=== PATIENT | male | born 1990 | race Caucasian/White ===

== ENCOUNTER 2021-05-28 10:07 | Emergency (ER) | payer BC, SELFPAY ==
--- NOTE | ~2021-05-28 | CT_ITS ---
EXAMINATION: CT abdomen pelvis wo con EXAM DATE: 05/28/2021 11:50 INDICATION: RLQ pain. TECHNIQUE: Spiral CT of the abdomen and pelvis was performed without contrast. Axial, coronal and sag ittal images were reviewed. The dose-length product (DLP) for this examination was 691.82 mGy-cm. T he exposure was tailored according to patient size (auto mA exposure control), and iterative reconstr uction (ASIR) was used as additional dose reduction technique. Comparison is made to prior examinatio n from 06/01/2018. FINDINGS: There is no nephrolithiasis or hydronephrosis. The prostate is unremarkable. The bladder is unremarkable. The liver, spleen, adrenal glands and pancreas are unremarkable. Gallbladder is u nremarkable. No biliary obstruction. There is no retroperitoneal or pelvic lymphadenopathy. The appendix is normal. The stomach and small bowel are unremarkable. There is expected amount of c olonic stool. No free intraperitoneal gas. The heart is normal in size. There are no pericardial or pleural effusions. Left lower lobe granulomata. The bones are unremarkable. IMPRESSION: Normal appendix. No acute findings. Reviewed, dictated and finalized at location B.
[2021-05-28 10:12] VITALS: BP 150/97; PULSE 85; RESP 16; TEMP 36.3; O2SAT 100
--- NOTE | 2021-05-28 10:24 | ED.GENADULT ---
HPI - General Adult General Chief complaint: Abdominal Pain Stated complaint: ABD pain Time Seen by Provider: 05/28/21 10:12 Source: patient Mode of arrival: ambulatory Limitations: no limitations History of Present Illness HPI narrative: Here for evaluation of right lower quadrant pain. Patient states that started about 2 days ago and is nagging in quality. States he is urinating and stooling as usual. His appetite is not changed. He denies any injury to the area. No history of kidney stones in him, may be remote in his grandfather. Onset (ago): day(s) Radiation: back (from front to back) Quality: aching Pain Consistency: constant Relieving factors: none Exacerbating factors: none Associated symptoms: denies other symptoms Related Data Home Medications Medication Instructions Recorded Confirmed No Home Medications 04/18/21 04/18/21 Allergies Allergy/AdvReac Type Severity Reaction Status Date / Time Sulfa (Sulfonamide Allergy Unknown unkown Verified 05/28/21 10:37 Antibiotics) Review of Systems Review of Systems: All systems reviewed & are unremarkable except as noted in HPI and below [facility] Family History Family History Grandparent Acute myocardial infarction Social History Social History (Updated 05/28/21 @ 11:08 by Jessica Tang PA-C) Smoking status: Never smoker Alcohol intake: current Alcohol use details: rarely Substance use type: does not use Living arrangements: with family Occupation/Education: occupation Additional occupation/education comments: desk job Exam Const: General: no acute distress and alert Orientation/consciousness: patient oriented x3 HENMT: Head: normal to inspection Eyes: Pupils: Equal, round and reactive pupils present Resp: Effort & Inspection: normal respiratory effort Auscultation: clear to auscultation bilaterally Cardio: Rate: regular rate Rhythm: regular rhythm GI: GI Palp: Yes Soft to palpation and Yes Tenderness to palpation present (GI) (RLQ, mild) Auscultation: normal bowel sounds Back/Spine/Pelvis: Back: no CVA tenderness Skin: General skin exam: normal color Extrem: General: normal to inspection Psych: Mental Status: mental status grossly normal Course Course Emergency Course: Test were unremarkable here. Patient states that he currently does not have pain. Recommend that he try a bland diet for a while at home and see if that makes it better, follow-up with his primary care physician. Vital Signs Vital signs: Vital Signs Temperature 36.3 C L 05/28/21 10:12 Pulse Rate 85 05/28/21 10:12 Respiratory Rate 16 05/28/21 10:12 Blood Pressure 150/97 H 05/28/21 10:12 Pulse Oximetry 100 05/28/21 10:12 Temperature 36.3 C L 05/28/21 10:12 Pulse Rate 85 05/28/21 10:12 Respiratory Rate 16 05/28/21 10:12 Blood Pressure 150/97 H 05/28/21 10:12 Pulse Oximetry 100 05/28/21 10:12 Medical Decision Making Vital Signs Vital Signs: Vital Signs Temperature 36.3 C L 05/28/21 10:12 Pulse Rate 85 05/28/21 10:12 Respiratory Rate 16 05/28/21 10:12 Blood Pressure 150/97 H 05/28/21 10:12 Pulse Oximetry 100 05/28/21 10:12 Temperature 36.3 C L 05/28/21 10:12 Pulse Rate 85 05/28/21 10:12 Respiratory Rate 16 05/28/21 10:12 Blood Pressure 150/97 H 05/28/21 10:12 Pulse Oximetry 100 05/28/21 10:12 Discharge Plan Discharge Clinical Impression: Abdominal pain in male Patient Disposition: Home, Self-Care Condition: Improved Instructions: Antibiotic Form, Abdominal Pain (ED) Additional Instructions: May try eating a bland diet for the next several days see if that makes your pain resolved. Follow-up with your primary care physician at the first available date. Return to the emergency room should you have blood in your stool or urine, or unable to urinate. Prescriptions: No Action No Home Medic
[2021-05-28 10:57] LABS: Basophils Absolute Auto 0.1 K/mm3 (0.0-0.1); Basophils Percent Auto 1.5 % (0.2-1.2); Eosinophils Absolute Auto 0.2 K/mm3 (0-0.3); Eosinophils Percent Auto 4.4 % (0-4.4); Hematocrit 42.6 % (42.0-52.0); Hemoglobin 13.9 g/dL (14.0-18.0); Immature Granulocyte Absolute 0.01 K/mm3 (0.00-0.031); Immature Granulocyte Percent A 0.2 % (0-0.5); Lymphocytes Absolute Auto 1.64 K/mm3 (0.9-3.2); Lymphocytes Percent Auto 34.5 % (18.3-44.2); Mean Corpuscular HGB Conc 32.6 g/dl (32-36); Mean Corpuscular Hemoglobin 29.6 pg (26-34); Mean Corpuscular Volume 90.8 fl (80-100); Mean Platelet Volume 10.2 fl (7.4-10.4); Monocytes Absolute Auto 0.4 K/mm3 (0.1-0.6); Monocytes Percent Auto 8.4 % (2.6-8.5); Neutrophils Absolute Auto 2.4 K/mm3 (1.3-6.7); Platelet Count Result 227 k/mm3 (150-375); Red Blood Count 4.69 M/mm3 (4.6-6.20); Red Cell Distribution Width 12.4 % (11.5-14.5); White Blood Count 4.8 K/mm3 (4.5-10.0)
[2021-05-28 11:23] LABS: Add Urine Microscopic? NO; Appearance Urine Clear (Clear); Bilirubin Urine Negative (Negative); Blood Urine Negative (Negative); Color Urine Yellow (Yellow); Glucose Urine UA Negative (Negative); Ketones Urine Negative (Negative); Leukocyte Esterase Ur Negative LEU/UL (Negative); Nitrate Urine Negative (Negative); Protein Urine Negative (Negative); Specific Grav Ur 1.012 (1.001-1.035); Urobilinogen Urine Negative mg/dL (<2.0)
[2021-05-28 11:38] LABS: Alanine Aminotransferase 25 U/L (4-50); Albumin Level 4.4 g/dL (3.5-5.1); Alkaline Phosphatase 61 U/L (38-126); Anion Gap 7 mmol/L (8-16); Aspartate Amino Transferase 32 U/L (17-59); Blood Urea Nitrogen 11 mg/dL (9-20); Calcium 9.4 mg/dL (8.4-10.2); Carbon Dioxide 29 mmol/L (22-30); Chloride 103 mmol/L (98-107); Estimated CRCL calculation 117 ml/min; Estimated Glomerular Filt Rate > 60; Glucose 99 mg/dL (65-110); Lipase 124 U/L (23-300); Potassium 4.2 mmol/L (3.4-5.0); Sodium 139 mmol/L (137-145)
[2021-05-28 12:30] VITALS: BP 121/88; PULSE 69; RESP 14; O2SAT 99
[2021-05-28 13:20] VITALS: BP 134/84; PULSE 66; RESP 17; O2SAT 100
== END 2021-05-28 13:21 | disposition home or self-care (01) ==
PROVIDERS: Physician Assistant; Emergency Provider Emergency Medicine
DX: R10.31 Right lower quadrant pain (principal)
CPT/HCPCS: 36415; 74176; 80053; 81003; 83690; 85025; 99284

== ENCOUNTER 2022-07-02 12:38 | Emergency (ER) | payer BC, SELFPAY ==
[2022-07-02 12:51] VITALS: BP 126/87; PULSE 97; RESP 16; TEMP 36.5; O2SAT 98
--- NOTE | 2022-07-02 13:16 | ED.URI ---
HPI - URI/Sore Throat General Chief Complaint: Upper Respiratory Infection Stated Complaint: sinus congestion Time Seen by Provider: 07/02/22 13:16 Source: patient, RN notes reviewed and old records reviewed Mode of arrival: ambulatory Limitations: no limitations History of Present Illness HPI Narrative: 31-year-old male presents to the [facility] with complaints of sinus congestion and pressure. Reports testing positive for influenza a on the 20 of June. Patient states he was never tested for flu, states that son was positive for flu and he just assumed he had the flu as well. Related Data Allergies Allergy/AdvReac Type Severity Reaction Status Date / Time Sulfa (Sulfonamide Allergy Unknown unkown Verified 07/02/22 12:56 Antibiotics) Review of Systems Review of Systems: All systems reviewed & are unremarkable except as noted in HPI and below Constitutional: Constitutional: Reports no additional constitutional complaints Eyes: Eyes: Reports no additional eye complaints ENT: Reports as per HPI Cardiovascular: Cardiovascular: Reports no additional cardiovascular complaints, Denies chest pain and Denies dyspnea Respiratory: Respiratory: Reports no additional respiratory complaints, Denies chest congestion, Denies cough and Denies dyspnea Gastrointestinal: Gastrointestinal: Reports no additional gastrointestinal complaints Musculoskeletal: Musculoskeletal: Reports no additional musculoskeletal complaints Integumentary/Breasts: Skin/Breast: Reports system reviewed and no additional complaints, except as docu Neurologic: Reports system reviewed and no additional complaints, except as documented Psychiatric: Psychiatric: Reports no additional psychiatric complaints Allergic/Immunologic: Allergic/Immunologic: Reports no additional allergic/immunologic complaints [facility] Past Medical History Medical History No active medical problems Family History Family History Grandparent Acute myocardial infarction Social History Social History Smoking status: Never smoker Alcohol intake: current Alcohol use details: rarely Substance use type: does not use Additional occupation/education comments: desk job Comments At the time of my signature, I reviewed and agree with the nursing past medical, surgical, social, and family history. There is no relevant family history pertinent to the patient complaint. Exam Const: General: cooperative, healthy appearing, comfortable, no acute distress, well developed, alert and average body habitus Nutritional Appearance: average body habitus Orientation/consciousness: patient oriented x3 Limitations: no limitations HENMT: Head: normal to inspection Ears: hearing grossly normal bilaterally, external ears normal and TM abnormal bulging on the left, perforated with bloody discharge on the left and scarred on the left Face/Nose/Sinus: Normal external nose present, Normal nares present, Normal nasal mucous membranes and turbinates present and normal facial exam Face and sinus: normal facial exam Mouth: Yes Normal oral and palatal mucosa present, Yes lip normal and Yes moist mucous membranes Throat: posterior oropharynx normal and uvula midline Eyes: General: appearance normal, both eyes and all related structures Alignment and Position: alignment normal Periorbital: periorbital findings normal Conjunctivae: conjunctivae normal Pupils: Equal, round and reactive pupils present EOM: EOMs intact bilaterally Neck: Neck: normal visual inspection, full ROM, no lymphadenopathy and no meningeal signs Chest: Chest palpation & inspection: normal inspection of the chest Resp: Effort & Inspection: normal respiratory effort and able to speak in complete sentences Auscultation: clear to auscultation bilaterally, no crackl
== END 2022-07-02 13:47 | disposition home or self-care (01) ==
PROVIDERS: Emergency Provider Nurse Practitioner
DX: H66.92 Otitis media, unspecified, left ear (principal); H72.92 Unspecified perforation of tympanic membrane, left ear; J01.40 Acute pansinusitis, unspecified
CPT/HCPCS: 99213; G0463

== ENCOUNTER 2022-10-07 10:58 | Outpatient (CLI) | payer BC, SELFPAY ==
[2022-10-07 12:42] LABS: Kit Draw Collected
== END 2022-10-07 10:59 | disposition home or self-care (01) ==
LOC: ANHGOSHLAB 10:59
PROVIDERS: PCP Family Medicine; Visit Provider Nurse Practitioner
DX: R10.9 Unspecified abdominal pain (principal)
CPT/HCPCS: 36415

== ENCOUNTER 2023-01-26 11:52 | Emergency (ER) | payer BC, SELFPAY ==
--- NOTE | 2023-01-26 11:54 | ED.EYEPROB ---
HPI - Eye Problem General Chief complaint: Eye Problems Stated complaint: EYE INFECTION Time Seen by Provider: 01/26/23 11:53 Source: patient Mode of arrival: ambulatory Limitations: no limitations History of Present Illness HPI Narrative: Cholo is a 32-year-old male patient presenting to the clinic today with complaints of possible right eye infection x1 day. He reports he does wear contacts. His currently has conjunctivitis and he is concerned that he may have pinkeye. Denies any known injury to the eye but does states the eye is painful and feels like there are scratches in his right eye. States he is having some clear watery discharge coming from the eye and some yellow crusting at times Related Data Allergies Allergy/AdvReac Type Severity Reaction Status Date / Time Sulfa (Sulfonamide Allergy Unknown unkown Verified 01/26/23 11:55 Antibiotics) Review of Systems Review of Systems: Pertinent positives per HPI. Patient denies any fever, chills, rash, headache, visual changes, dizziness, cough, runny nose, sore throat, shortness of breath, chest pain, palpitations, nausea, vomiting, diarrhea, constipation, abdominal pain, or any urinary issues. [facility] Past Medical History Medical History No active medical problems Family History Family History Grandparent Acute myocardial infarction Mother Lupus Social History Social History Social History: Caffeine- 2 cups coffee daily Smoking status: Never smoker Alcohol intake: current Alcohol use details: rarely Substance use type: does not use Lack of Transportation: No Lack of Food: Never True Current Housing: I Have Housing Concerned About Future Housing: No Difficulty Paying Gas/Electric Bills: No Difficulty Paying for Meds: No Currently Unemployed: No Education: Bachelor's Degree Difficulty w/ Childcare or Family Care: No Living arrangements: with family Occupation/Education: occupation Additional occupation/education comments: desk job Comments At the time of my signature, I reviewed and agree with the nursing past medical, surgical, social, and family history. There is no relevant family history pertinent to the patient complaint. Exam Narrative: General: Well-developed, well nourished, in no apparent distress Head: Normocephalic, atraumatic Eyes: Pupils equally round and reactive to light bilaterally, EOM intact, left sclera and conjunctive clear, right sclera and conjunctiva mildly injected, no discharge, lids normal Ears: TMs intact and clear, ear canals clear, no drainage, grossly hearing normal. Nose: Nares patent, no discharge, no inflammation, no sinus tenderness. Mouth: Oropharynx without lesions or masses, good dentition, MMM. Neck: Supple, trachea midline, no enlargement of anterior or posterior cervical nodes, no thyroid masses or goiter palpable. Cardio: Regular rate and rhythm, s1 and s2 normal, no murmur appreciated. Resp: Clear to auscultation bilaterally anteriorly and posteriorly, no rhonchi, rales, wheezing or rubs Course Course Emergency Course: Portions of this record may have been created with voice recognition software. Level of Care: Express Care Visit Vital Signs Vital signs: Vital signs reviewed Procedures Other Procedure Procedure 1: Other Procedure: 1 drop of tetracaine topical anesthetic was instilled with good anesthesia into the right eye. Fluorescein stain of the right eye was performed without uptake of dye. No epithelial defect was noted. No FB, ulcer or dendritic lesions. Upper lid was everted and no FB or lesions were noted. N0 Jesús sign. Normal saline irrigation eye solution was performed and the patient tolerated the procedure well, no adverse reaction or complications.
[2023-01-26 12:00] VITALS: BP 128/68; PULSE 98; RESP 16; TEMP 36.6; O2SAT 99
== END 2023-01-26 12:20 | disposition home or self-care (01) ==
PROVIDERS: Emergency Provider Nurse Practitioner Family; PCP Nurse Practitioner
DX: H57.11 Ocular pain, right eye (principal)
CPT/HCPCS: 99213; A9270; G0463

== ENCOUNTER 2023-09-23 12:03 | Emergency (ER) | payer BC, SELFPAY ==
[2023-09-23 12:27] VITALS: BP 147/85; PULSE 105; RESP 16; TEMP 36.4; O2SAT 99
--- NOTE | 2023-09-23 12:33 | ED.URI ---
HPI - URI/Sore Throat General Chief Complaint: Upper Respiratory Infection Stated Complaint: Fatigue/Bodyaches Time Seen by Provider: 09/23/23 12:33 Source: patient Mode of arrival: ambulatory Limitations: no limitations History of Present Illness HPI Narrative: 33 y/o male presented for c/o generalized fatigue and body aches x2 days. Says he had some nasal congestion which has resolved. Denies any other symptoms. Not taking anything for symptoms. Related Data Allergies Allergy/AdvReac Type Severity Reaction Status Date / Time Sulfa (Sulfonamide Allergy Unknown unkown Verified 09/23/23 12:17 Antibiotics) Review of Systems Review of Systems: CONSTITUTIONAL: reports body aches, malaise denies fever, chills, or sweats. EYES: Denies visual changes, redness, or discharge. ENT: Denies rhinorrhea, congestion, sore throat, or otalgia. CARDIOVASCULAR: Denies chest pain, palpitations, or edema. RESPIRATORY: Denies cough or dyspnea. GASTROINTESTINAL: Denies abdominal pain, nausea, vomiting, or diarrhea. GENITOURINARY: Denies dysuria or hematuria. SKIN: Denies rash, itching, or wounds. MUSCULOSKELETAL: Denies back pain, joint pain, or myalgia. NEUROLOGIC: Denies headache, numbness, tingling, or weakness. All systems reviewed & are unremarkable except as noted in HPI and below PMFSH Past Medical History Medical History No active medical problems Family History Family History Grandparent Acute myocardial infarction Mother Lupus Social History Social History Social History: Caffeine- 2 cups coffee daily Smoking status: Never smoker Alcohol intake: current Alcohol use details: rarely Substance use type: does not use Lack of Transportation: No Lack of Food: Never True Current Housing: I Have Housing Concerned About Future Housing: No Difficulty Paying Gas/Electric Bills: No Difficulty Paying for Meds: No Currently Unemployed: No Education: Bachelor's Degree Difficulty w/ Childcare or Family Care: No Living arrangements: with family Occupation/Education: occupation Additional occupation/education comments: desk job Comments At time of signature, I have reviewed and agree with nursing past medical, surgical, social and family history unless otherwise noted. Please see nursing chart for further information. There is no relevant family history pertinent to the presenting complaint Exam Narrative: GENERAL: Well-appearing EYES: EOMI. No redness or drainage. Conjunctivae normal. ENT: Mucous membranes pink and moist. No rhinorrhea. TMs pearly anderson with dull light reflex and clear effusion bilaterally. Throat normal. Uvula midline. NECK: Normal AROM. Supple. No lymphadenopathy. CHEST: No respiratory distress. Clear to auscultation. HEART: Regular rate and rhythm. No murmur appreciated. Normal peripheral pulses. SKIN: Warm, dry, no rash. Capillary refill normal. Normal skin turgor. NEURO: No focal deficits. Alert and oriented x3. Gait steady. PSYCH: Normal affect. Course Course Emergency Course: Patient is aware of diagnosis, understands and agrees to treatment plan. Anticipatory guidance given. Patient agrees to follow-up as directed and is aware of reasons to seek care at the emergency department. Portions of this record may have been created with voice recognition software Level of Care: Express Care Visit Vital Signs Vital signs: Vital Signs Temperature 97.6 F 09/23/23 12:27 Pulse Rate 105 H 09/23/23 12:27 Respiratory Rate 16 09/23/23 12:27 Blood Pressure 147/85 H 09/23/23 12:27 Pulse Oximetry 99 09/23/23 12:27 Temperature 97.6 F 09/23/23 12:27 Pulse Rate 105 H 09/23/23 12:27 Respiratory Rate 16 09/23/23 12:27 Blood Pressure 147/85 H 09/23/23 12:27 Pulse Oximetr
== END 2023-09-23 12:45 | disposition home or self-care (01) ==
PROVIDERS: Emergency Provider Nurse Practitioner Family
DX: B34.9 Viral infection, unspecified (principal); Z20.822 Contact with and (suspected) exposure to COVID-19
CPT/HCPCS: 87426; 87804; 99213; G0463

== ENCOUNTER 2023-09-28 08:23 | Emergency (ER) | payer BC, SELFPAY ==
--- NOTE | ~2023-09-28 | XR_ITS ---
EXAMINATION: XR chest 2V DATE: 09/28/2023 08:56 INDICATION: Right chest pain. TECHNIQUE: Frontal and lateral views of the chest were obtained. COMPARISON: CT abdomen and pelvis 05/28/2021 FINDINGS: A calcified left lung nodule is consistent with old granulomatous disease. There is no pneu monia, pleural effusion, or pneumothorax. The heart size is normal. IMPRESSION: 1. No acute cardiopulmonary disease. Reviewed, dictated and finalized at location A. MECHANICAL TECHNICIAN
--- NOTE | 2023-09-28 08:24 | ECG_ITS ---
Measurements Intervals [place] Rate: 83 P: 52 PA: 165 QRS: 27 QRSD: 89 T: 14 QT: 364 QTc: 430 Interpretive Statements SINUS RHYTHM NO PREVIOUS ECG AVAILABLE FOR COMPARISON Electronically Signed On 09-28-2023 12:43:11 COMPENSATION ANALYST by Hanh Burgos M.D.
[2023-09-28 08:29] VITALS: PULSE 86; RESP 16; TEMP 36.7; O2SAT 100
[2023-09-28 08:50] LABS: Basophils Absolute Auto 0.1 K/mm3 (0.0-0.1); Basophils Percent Auto 1.3 % (0.2-1.2); Eosinophils Absolute Auto 0.4 K/mm3 (0-0.3); Eosinophils Percent Auto 5.8 % (0-4.4); Hematocrit 48.7 % (42.0-52.0); Hemoglobin 15.3 g/dL (14.0-18.0); Immature Granulocyte Absolute 0.01 K/mm3 (0.00-0.031); Immature Granulocyte Percent A 0.2 % (0-0.5); Lymphocytes Absolute Auto 1.91 K/mm3 (0.9-3.2); Lymphocytes Percent Auto 30.5 % (18.3-44.2); Mean Corpuscular HGB Conc 31.4 g/dl (32-36); Mean Corpuscular Hemoglobin 28.6 pg (26-34); Mean Platelet Volume 10.8 fl (7.4-10.4); Monocytes Absolute Auto 0.6 K/mm3 (0.1-0.6); Monocytes Percent Auto 10.1 % (2.6-8.5); Neutrophils Absolute Auto 3.3 K/mm3 (1.3-6.7); Neutrophils Percent Auto 52.1 % (45.5-73.1); Platelet Count Result 243 k/mm3 (150-375); Red Blood Count 5.35 M/mm3 (4.6-6.20); Red Cell Distribution Width 12.5 % (11.5-14.5); White Blood Count 6.3 K/mm3 (4.5-10.0)
[2023-09-28 08:58] VITALS: BP 127/79; PULSE 89; RESP 17; TEMP 36.7; O2SAT 97
[2023-09-28 09:00] LABS: Alanine Aminotransferase 25 U/L (6-50); Albumin Level 4.6 g/dL (3.5-5.1); Alkaline Phosphatase 89 U/L (38-126); Anion Gap 10 mmol/L (8-16); Aspartate Amino Transferase 27 U/L (17-59); Bilirubin,Total 1.2 mg/dL (0.2-1.3); Blood Urea Nitrogen 11 mg/dL (9-20); Calcium 9.5 mg/dL (8.4-10.2); Carbon Dioxide 23 mmol/L (22-30); Chloride 105 mmol/L (98-107); Estimated Glomerular Filt Rate > 60; Glucose 97 mg/dL (65-110); Lipase 167 U/L (23-300); Potassium 3.9 mmol/L (3.4-5.0); Sodium 138 mmol/L (137-145)
[2023-09-28 09:01] LABS: Prothrombin Time 13.3 Seconds (11.1-14.7)
[2023-09-28 09:02] LABS: Partial Thromboplastin Time 31.2 SECONDS (22.3-36.8)
[2023-09-28 09:12] LABS: Troponin I < 0.012 ng/mL (0.000-0.034)
[2023-09-28 09:26] LABS: Influenza A QL RT-PCR Negative (Negative); Influenza B QL RT-PCR Negative (Negative); RSV RNA, RT-PCR Negative (Negative); SARS-CoV-2 RNA PCR Negative (Negative)
--- NOTE | 2023-09-28 09:32 | ED.CHESTPAIN ---
HPI - Chest Pain General Chief Complaint: Chest Pain Stated Complaint: Chest pain Time Seen by Provider: 09/28/23 08:24 History of Present Illness HPI narrative: 33-year-old male presents to the emergency department for evaluation chest pain has been persistent since . Patient states when he woke up on Wednesday he had increased generalized fatigue and then on he began having mild right-sided chest pressure. Patient states he does have some associated shortness of breath with this. Patient described the chest pain is constant since , states sometimes radiates to left side of his chest but does not radiate to his neck back or arms. Patient denies any prior history coronary disease, denies any cardiac history and denies any prior history of PE or DVT. Patient denies any recent cough colds or fevers. Related Data Allergies Allergy/AdvReac Type Severity Reaction Status Date / Time Sulfa (Sulfonamide Allergy Unknown unkown Verified 09/23/23 12:17 Antibiotics) Review of Systems Review of Systems: All systems reviewed & are unremarkable except as noted in HPI and below PMFSH Past Medical History Medical History No active medical problems Family History Family History Grandparent Acute myocardial infarction Mother Lupus Social History Social History Social History: Caffeine- 2 cups coffee daily Smoking status: Never smoker Alcohol intake: current Alcohol use details: rarely Substance use type: does not use Lack of Transportation: No Lack of Food: Never True Current Housing: I Have Housing Concerned About Future Housing: No Difficulty Paying Gas/Electric Bills: No Difficulty Paying for Meds: No Currently Unemployed: No Education: Bachelor's Degree Difficulty w/ Childcare or Family Care: No Living arrangements: with family Occupation/Education: occupation Additional occupation/education comments: desk job Exam Narrative: APPEARANCE: Well appearing, no pain, no distress, well-nourished. HEAD: normocephalic, atraumatic. EYES: PERRLA/EOMI, conjunctivae clear. NOSE: Normal no drainage NECK: Supple. No adenopathy, no masses. RESPIRATORY: Airway patent, respirations nonlabored. Clear to auscultation bilaterally, no rales, rhonchi, wheezing. CARDIOVASCULAR: Regular rate and rhythm without murmurs rubs or gallops. ABDOMINAL: Soft, nontender, nondistended, normal bowel sounds MUSCULOSKELETAL: Moves all extremities. Right-sided chest wall tenderness to palpation NEURO: Alert. Cranial nerves II through XII intact. Good gait. Good coordination SKIN: Warm, dry. Normal Color Course Vital Signs Vital signs: Vital Signs Temperature 98.0 F 09/28/23 08:29 Pulse Rate 86 09/28/23 08:29 Respiratory Rate 16 09/28/23 08:29 Pulse Oximetry 100 09/28/23 08:29 Oxygen Delivery Room Air 09/28/23 08:29 Temperature 98.0 F 09/28/23 12:29 Pulse Rate 72 09/28/23 12:29 Respiratory Rate 15 09/28/23 12:29 Blood Pressure 117/71 09/28/23 12:29 Pulse Oximetry 98 09/28/23 12:29 Oxygen Delivery Room Air 09/28/23 08:41 MDM - Chest Pain MDM Narrative Medical decision making narrative: 33-year-old male presenting to the emergency department for evaluation of chest pain. Patient is afebrile with no leukocytosis and a stable hemoglobin of 15.3. Patient had a negative D-dimer and negative serial troponins, no acute abnormalities on the CMP patient was negative for influenza B and for COVID. Low concern for ACS. Patient was updated results of the workup. Differential Diagnosis Differential diagnosis: Likely fracture of rib, pneumothorax, stable angina, unstable angina pectoris, atypical chest pain, st elevation myocardial infarction, costochondritis, chest pain and biliary colic Lab Da
[2023-09-28 09:52] VITALS: BP 132/83; PULSE 78; RESP 16; TEMP 36.4; O2SAT 97
[2023-09-28 09:54] LABS: D Dimer < 0.27 ug/mL (<0.48)
[2023-09-28 11:00] VITALS: BP 113/79; PULSE 95; RESP 13; TEMP 36.6; O2SAT 97
[2023-09-28] MEDS: KETOROLAC 15 MG/ML VIAL (*BKC) IV PUSH (11:49)
[2023-09-28 11:59] LABS: Troponin I < 0.012 ng/mL (0.000-0.034)
[2023-09-28 12:29] VITALS: BP 117/71; PULSE 72; RESP 15; TEMP 36.7; O2SAT 98
== END 2023-09-28 12:51 | disposition home or self-care (01) ==
PROVIDERS: Emergency Provider Emergency Medicine
DX: R07.9 Chest pain, unspecified (principal); Z20.822 Contact with and (suspected) exposure to COVID-19
CPT/HCPCS: 36415; 71046; 80053; 83690; 84484; 85025; 85380; 85610; 85730; 87637; 93005; 96374; 99284; J1885

== ENCOUNTER 2025-02-07 13:01 | Emergency (ER) | payer BC, SELFPAY ==
[2025-02-07 13:21] VITALS: BP 132/92; PULSE 104; RESP 16; TEMP 37; O2SAT 99
--- NOTE | 2025-02-07 13:30 | ED_ITS ---
HPI - Male Genitourinary General Chief complaint: Urogenital-Male Stated complaint: GROIN PAIN Time Seen by Provider: 02/07/25 13:30 Source: patient Mode of arrival: ambulatory Limitations: no limitations History of Present Illness HPI Narrative: 34 yo M presents with c/o intermittent rectal itching for approx. 2 wks. Started itching approx. 2 wks after visiting [place]. had been there with his kids and family. Read on google he may have pin worms. Used an OTC tx with no change to symptoms. Has checked for rash and does not see anything. States has been doing a lot of yardwork and sweating. Thought maybe jock itch. Last night began to have itching to tip of penis. Denies urinary symptoms. no rash to penis. All systems reviewed and negative except as noted above. Related Data Allergies Allergy/AdvReac Type Severity Reaction Status Date / Time Sulfa (Sulfonamide Allergy Unknown unkown Verified 02/07/25 13:18 Antibiotics) Review of Systems Review of Systems: CONSTITUTIONAL: Denies fever, chills, or sweats. EYES: Denies visual changes, redness, or discharge. ENT: Denies rhinorrhea, congestion, sore throat, or otalgia. CARDIOVASCULAR: Denies chest pain, palpitations, or edema. RESPIRATORY: Denies cough or dyspnea. GASTROINTESTINAL: Denies abdominal pain, nausea, vomiting, or diarrhea. GENITOURINARY: Denies dysuria or hematuria. SKIN: Denies rash. Reports rectal itching. MUSCULOSKELETAL: Denies back pain, joint pain, or myalgia. NEUROLOGIC: Denies headache, numbness, or weakness. PSYCHIATRIC: Denies anxiety or depression. All other systems reviewed are negative, except as documented in HPI. [facility] Past Medical History Medical History No active medical problems Family History Family History Grandparent Acute myocardial infarction Mother Lupus Social History Social History Social History: Caffeine- 2 cups coffee daily Smoking status: Never smoker Alcohol intake: current Alcohol use details: rarely Substance use type: does not use Lack of Transportation: No Lack of Food: Never True Current Housing: I Have Housing Concerned About Future Housing: No Difficulty Paying Gas/Electric Bills: No Difficulty Paying for Meds: No Currently Unemployed: No Education: Bachelor's Degree Difficulty w/ Childcare or Family Care: No Living arrangements: with family Occupation/Education: occupation Additional occupation/education comments: desk job Comments At time of signature, agree with nursing past medical, surgical, social and family history. There is no relevant family history pertinent to the presenting complaint. Exam Narrative: GENERAL: This is a well-nourished, well-developed patient, in no apparent distress. HEAD: normocephalic, atraumatic. EYES: PERRL. Sclera clear/white. Vision is grossly intact. EARS: External ears normal NOSE: External nose normal NECK: Neck supple, non-tender without lymphadenopathy, masses or thyromegaly. CARDIOVASCULAR: Regular rate and rhythm without murmurs, gallops, or rubs. RESPIRATORY: Clear to auscultation. Breath sounds equal bilaterally. No wheezes, rales, or rhonchi. SKIN: warm, Dry, intact with no suspicious lesions or rash, good texture and turgor. no rash, swelling or open lesions to rectum/buttock. wet/moist appearance NEURO: awake, alert, and oriented to person, place and time. There were no obvious focal neurologic abnormalities. EXTREMITIES: No joint tenderness, effusion, or edema noted. Course Course Level of Care: Express Care Visit Vital Signs Vital signs: Vital Signs Temperature 37.0 C 02/07/25 13:21 Pulse Rate 104 H 02/07/25 13:21 Respiratory Rate 16 02/07/25 13:21 Blood Pressure 132/92 H 02/07/25 13:21 Pulse Oximetry 99 02/07/25 13:21 Oxygen Delivery Room Air 02/07/25 13:21 Temperature 37.0 C 02/07/25 13:21 Pulse Rate 104 H 02/07/25 13:21 Respiratory Rate 16 02/07/25 13:21 Blood Pressure 132/92 H 02/07/25 13:21 Pulse Oximetry 99 02/07/25 13:21 Oxygen Delivery Room Air 02/07/25 13:21 reviewed MDM - Male Genitourinary MDM Narrative Medical decision making narrative: urinalysis normal. no rash or lesions noted. no hemorrhoids. no change stool/bowel habits. Will treat with antifungal. pt well appearing. Recommend follow up with PCP if not improving. Lab Data Labs: Lab Results 02/07/25 Range/Units 13:48 POC Urine Color Yellow POC Urine Clarity Clear POC Urine pH 6.0 POC Ur Specif [place] 1.025 POC Urine Protein Negative (Negative) POC Ur Glucose (UA) Negative (Negative) POC Urine Ketones Negative (Negative) POC Urine Blood Negative (Negative) POC Urine Nitrite Negative (Negative) POC Urine Bilirubin Negative (Negative) POC Urine Urobilinogen 0.2 POC U Leukocyte Esteras Negative (Negative) Discharge Plan Discharge Clinical Impression: Tinea cruris Patient Disposition: Home Condition: Stable Instructions: Skin Yeast Infection (ED) Additional Instructions: Take medication as prescribed. Hydroxyzine may cause drowsiness. Do not take while driving. Shower immediately after sweating/swimming. Do not wear damp clothing for long period of time. Practice good hygiene. Washing with soap and water. Pat dry with towel See your doctor if not improving. Patient Language: [place] Prescriptions: New terbinafine HCl 250 mg tablet 250 mg PO DAILY 10 Days Qty: 10 0RF hydroxyzine HCl 10 mg tablet 10 mg PO Q6-8H PRN (Reason: itching) Qty: 30 0RF No Action omeprazole 20 mg capsule,delayed release(DR/EC) 20 mg PO BID Qty: 30 2RF Follow-up/Referrals: UNKNOWN,DOCTOR [Primary Care Provider] - Time of Disposition: 13:54
[2025-02-07 13:52] LABS: EDUAAPPEAR Clear; EDUABILI Negative (Negative); EDUABLOOD Negative (Negative); EDUACOLOR1 Yellow; EDUAGLUCOSE Negative (Negative); EDUAKETONE Negative (Negative); EDUALEUKO Negative (Negative); EDUANITRATE Negative (Negative); EDUAPH 6.0; EDUAPROTEIN Negative (Negative); EDUASPGRAVITY 1.025; EDUAUROBILI 0.2
== END 2025-02-07 13:56 | disposition home or self-care (01) ==
PROVIDERS: Emergency Provider Nurse Practitioner Family
DX: B35.6 Tinea cruris (principal)
CPT/HCPCS: 81003; 99213; G0463